=== PATIENT | female | born 2005 | race Asian ===

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

== ENCOUNTER → 2023-11-05 | Outpatient (CLI) | payer BC ==
[2023-11-05 07:40] LABS: BASOPHILS % 0.8 % (0.0-2.0); EOSINOPHILS % 2.3 % (0.0-5.0); HEMATOCRIT. 39.9 % (36.0-48.0); HEMOGLOBIN. 13.4 g/dL (12.0-16.0); LYMPHOCYTES % 42.3 % (20.0-50.0); MEAN CORPUSCULAR HEMOGLOBIN 28.8 pg (28.0-32.0); MEAN CORPUSCULAR HGB CONC 33.5 g/dL (31.0-37.0); MEAN CORPUSCULAR VOLUME 86.2 fL (81.0-99.0); MEAN PLATELET VOLUME 7.5 fl (7.4-10.4); MONOCYTES % 7.1 % (2.0-8.0); NEUTROPHILS % 47.5 % (40.0-76.0); PLATELET 355 x1000/uL (130-400); RED BLOOD CELL COUNT 4.63 mill/uL (4.2-5.4); RED CELL DISTRIBUTION WIDTH 13.6 % (11.6-14.6); WHITE BLOOD COUNT 5.3 x1000/uL (4.5-11.0)
[2023-11-05 08:26] LABS: CLARITY URINE CLEAR (CLEAR); COLOR URINE YELLOW (YELLOW); GLUCOSE URINE NEGATIVE (NEGATIVE); KETONES URINE NEGATIVE (NEGATIVE); LEUKOCYTE ESTERASE URINE NEGATIVE (NEGATIVE); NITRITE URINE NEGATIVE (NEGATIVE); OCCULT BLOOD URINE NEGATIVE (NEGATIVE); PH URINE 5.5 (4.5-8.0); PROTEIN URINE NEGATIVE (NEGATIVE); SPECIFIC GRAVITY URINE 1.024 (1.005-1.030); UROBILINOGEN URINE 0.2 E.U./dL (0.2-1.0)
[2023-11-05 08:39] LABS: FOLIC ACID (FOLATE) SERUM > 20.00 ng/mL (>5.38); VITAMIN B12 SERUM 448 pg/mL (211-911)
[2023-11-05 08:43] LABS: ALANINE AMINOTRANSFERASE 12 IU/L (10-49); ALBUMIN 5.1 g/dL (3.2-4.8); ASPARTATE AMINOTRANSFERASE 18 IU/L (<34); BILIRUBIN TOTAL 0.4 mg/dL (0.1-1.0); CALCIUM 9.6 mg/dL (8.7-10.4); CARBON DIOXIDE 27 mEq/L (21-32); CHLORIDE 107 mEq/L (98-107); CHOLESTEROL 121 mg/dL (<200); GLUCOSE 85 mg/dL (70-105); HDL CHOLESTEROL 47 mg/dL (>65); LDL CHOLESTEROL 60 mg/dL (5-100); POTASSIUM 3.7 mEq/L (3.5-5.1); SODIUM 137 mEq/L (136-145); T4 FREE 1.23 ng/dL (0.89-1.76); THYROID STIMULATING HORMONE 4.14 uIU/mL (0.55-4.78); TRIGLYCERIDE 98 mg/dL (0-150); UREA NITROGEN BLOOD 9 mg/dL (9-23)
[2023-11-05 09:07] LABS: ERYTHROCYTE SEDIMENTATION RATE 2 mm/hr (0-20)
[2023-11-06 09:10] LABS: ANTI-NUCLEAR ANTIBODIES DIRECT Negative (Negative); SJOGRENS ANTI SS-A < 0.2 AI (0.0-0.9); SJOGRENS ANTI SS-B < 0.2 AI (0.0-0.9); THYROID PEROXIDASE ANTIBODY 13 IU/mL (0-26)
== END | disposition home or self-care (01) ==
LOC: MRI 06:59
PROVIDERS: ATTEND Internal Medicine Endocrinology, Diabetes & Metabolism
DX: M54.50 Low back pain, unspecified (principal); R42 Dizziness and giddiness; E04.9 Nontoxic goiter, unspecified; M79.606 Pain in leg, unspecified; R73.9 Hyperglycemia, unspecified
CPT/HCPCS: 36415; 72114; 72148; 80053; 80061; 81003; 82607; 82746; 83036; 83921; 84439; 84443; 85025; 85651; 86038; 86235; 86376; 86430

== ENCOUNTER → 2024-06-10 | Outpatient (CLI) | payer BC ==
[~2024-06-10] MED LIST: BARIUM SULFATE 450ML ORAL SUSP ONE; IOHEXOL-300 100 ML BOTTLE ONE
== END | disposition home or self-care (01) ==
LOC: US 07:20
PROVIDERS: ATTEND Internal Medicine Endocrinology, Diabetes & Metabolism
DX: N83.291 Other ovarian cyst, right side (principal); R07.9 Chest pain, unspecified
CPT/HCPCS: 74178; 76700; 76856; Q9967; Z7610

== ENCOUNTER → 2024-07-24 | Outpatient (CLI) | payer BC ==
[2024-07-25 10:11] LABS: CANCER ANTIGEN 125 14.4 U/mL (0.0-38.1)
== END | disposition home or self-care (01) ==
LOC: US 07:53
PROVIDERS: ATTEND Internal Medicine Endocrinology, Diabetes & Metabolism
DX: N83.209 Unspecified ovarian cyst, unspecified side (principal)
CPT/HCPCS: 76856; 86304; 86305